=== PATIENT | male | born 1975 | race Caucasian/White ===

== ENCOUNTER 2019-01-30 03:04 | Emergency (ER) | payer MEDICARE, MEDICAID ==
[~2019-01-30] VITALS: Ht 170.2 cm; Wt 100.0 kg
[2019-01-30] MEDS ORDERED: SODIUM CHLORIDE 0.9% 1,000 ML IV ONE ×2 (03:18→04:30)
[2019-01-30] MEDS ORDERED: MORPHINE SULFATE 4 MG/ML CPJ (NOT FOR IM USE) IV STA (03:18)
[2019-01-30] MEDS ORDERED: ONDANSETRON HCL 4MG/2ML INJ IV STA (03:18)
[2019-01-30 03:43] LABS: BASOPHILS % 1.2 % (0.0-2.0); EOSINOPHILS % 6.2 % (0.0-5.0); HEMATOCRIT. 30.5 % (42.0-52.0); HEMOGLOBIN. 10.9 g/dL (14.0-18.0); LYMPHOCYTES % 22.9 % (20.0-50.0); MEAN CORPUSCULAR HEMOGLOBIN 36.1 pg (28.0-32.0); MEAN CORPUSCULAR VOLUME 101.1 fL (80.0-94.0); MEAN PLATELET VOLUME 7.5 fl (7.4-10.4); MONOCYTES % 9.5 % (2.0-8.0); NEUTROPHILS % 60.2 % (40.0-76.0); PLATELET 177 x1000/uL (130-400); RED BLOOD CELL COUNT 3.02 mill/uL (4.7-6.1); RED CELL DISTRIBUTION WIDTH 13.5 % (11.6-14.6)
[2019-01-30 03:50] LABS: CHLORIDE 102 mEq/L (98-107)
[2019-01-30 03:51] LABS: PARTIAL THROMBOPLASTIN TIME 26.4 sec (23.4-31.0); PROTHROMBIN TIME 10.6 sec (9.6-11.0)
[2019-01-30] MEDS ORDERED: HYDROMORPHONE HCL/PF 2MG/ML CPJ IV ONE (04:30)
[2019-01-30 05:15] VITALS: BP 183/75
[2019-01-30] MEDS ORDERED: IOHEXOL-300 100 ML BOTTLE ONE (05:56)
[2019-01-30] MEDS ORDERED: IOHEXOL-350 100 ML BOTTLE ONE (05:56)
== END 2019-02-03 10:21 | disposition short-term general hospital (02) ==
LOC: ER 03:04
DX: S22.32XA Fracture of one rib, left side, initial encounter for closed fracture (principal); S22.21XA Fracture of manubrium, initial encounter for closed fracture; S22.088A Other fracture of T11-T12 vertebra, initial encounter for closed fracture; E11.9 Type 2 diabetes mellitus without complications; E78.00 Pure hypercholesterolemia, unspecified; I10 Essential (primary) hypertension; V49.59XA Passenger injured in collision with other motor vehicles in traffic accident, initial encounter; Y93.89 Activity, other specified; Y92.89 Other specified places as the place of occurrence of the external cause; Y99.8 Other external cause status; Z98.890 Other specified postprocedural states
CPT/HCPCS: 36415; 70450; 70498; 71045; 71260; 72125; 72128; 72131; 74177; 80053; 83690; 84484; 85025; 85610; 85730; 86850; 86900; 86901; 96374; 96375; 99291; J1170; J2270; J2405; J7030; Q9967

== ENCOUNTER 2020-06-29 10:38 | Inpatient (IN) | payer MEDICARE, OTHER ==
[~2020-06-29] VITALS: Ht 165.1 cm; Wt 96.2 kg
[~2020-06-29 10:38] MED LIST: AMLO5TAB88 PO; CALC667C MT; L25 MT; LEVE750T4 PO; LISI10TA5 PO
[2020-06-29] MEDS ORDERED: ONDANSETRON HCL 4MG/2ML INJ IV STA (10:56)
[2020-06-29] MEDS ORDERED: LORAZEPAM 2MG/ML CPJ IV STA (10:56)
[2020-06-29 11:55] LABS: BASOPHILS % 0.8 % (0.0-2.0); EOSINOPHILS % 2.9 % (0.0-5.0); HEMATOCRIT. 24.3 % (42.0-52.0); HEMOGLOBIN. 8.3 g/dL (14.0-18.0); LYMPHOCYTES % 12.5 % (20.0-50.0); MEAN CORPUSCULAR HEMOGLOBIN 33.3 pg (28.0-32.0); MEAN PLATELET VOLUME 7.6 fl (7.4-10.4); MONOCYTES % 11.6 % (2.0-8.0); NEUTROPHILS % 72.2 % (40.0-76.0); PLATELET 89 x1000/uL (130-400); RED BLOOD CELL COUNT 2.48 mill/uL (4.7-6.1)
[2020-06-29 12:07] LABS: CHLORIDE 92 mEq/L (98-107)
[2020-06-29 12:12] LABS: ETHANOL BLOOD 124 mg/dL
[2020-06-29] MEDS ORDERED: CHLORDIAZEPOXIDE 25MG CAPSULE PO ONE (12:15)
[2020-06-29] MEDS ORDERED: LORAZEPAM 2MG/ML CPJ IV ONE ×3 (12:15→13:30)
[2020-06-29] MEDS ORDERED: FUROSEMIDE 100MG/10ML VIAL IV STA (12:29)
[2020-06-29] MEDS ORDERED: ALBUTEROL (0.083%) 2.5MG/3ML NEB HHN ONE (12:30)
[2020-06-29] MEDS ORDERED: DEXTROSE 50% WATER 50ML SYRINGE IV ONE ×2 (12:30→14:30)
[2020-06-29] MEDS ORDERED: SODIUM BICARBONATE 8.4% 1 MEQ/ML 50ML SYR IV ONE (12:30)
[2020-06-29] MEDS ORDERED: INSULIN REGULAR (HUMULIN R) 300UNITS/3ML VIAL IV ONE (12:30)
[2020-06-29] MEDS ORDERED: FOLIC ACID 1 MG, THIAMINE HCL 100 MG, MVI, ADULT NO.1 10 ML in DEXTROSE 5% WATER 1,000 ML IV ONE ×4 (13:30)
[2020-06-29] MEDS ORDERED: DEXT 5% IV PRN (13:45)
[2020-06-29] MEDS ORDERED: LORAZEPAM IV PRN (13:45)
[2020-06-29] MEDS ORDERED: WATER IV PRN (13:45)
[2020-06-29] MEDS ORDERED: DEXT 10% WATER 1,000 ML IV SCH (14:45)
[2020-06-29] MEDS ORDERED: DEXTROSE 50% WATER 50ML SYRINGE IV PRN ×2 (14:45→15:45)
[2020-06-29] MEDS: DEXT 10% WATER 1,000 ML IV SCH (15:43)
[2020-06-29] MEDS ORDERED: ACETAMINOPHEN 325MG TABLET PO PRN (15:45)
[2020-06-29] MEDS ORDERED: ONDANSETRON HCL 4MG/2ML INJ IV PRN (15:45)
[2020-06-29] MEDS: BLOOD SUGAR DIAGNOSTIC STRIP TEST SCH ×2 (17:52→21:00)
[2020-06-29] MEDS: LORAZEPAM 2MG/ML CPJ IV PRN (22:35)
[2020-06-29] MEDS: TRAZODONE HCL 50MG TABLET PO PRN (22:38)
[2020-06-29] MEDS: CHLORDIAZEPOXIDE 25MG CAPSULE PO SCH (23:00)
[2020-06-29] MEDS: EPOETIN ALFA-EPBX 10,000 UNIT/ML VIAL SUBCUT SCH (23:00)
[2020-06-29] MEDS: AMLODIPINE 5MG TABLET PO SCH (23:00)
[2020-06-30] VITALS: BP 153/78
[2020-06-30 04:00] VITALS: BP 151/46
[2020-06-30] MEDS: BLOOD SUGAR DIAGNOSTIC STRIP TEST SCH ×4 (06:33→20:11)
[2020-06-30] MEDS: CHLORDIAZEPOXIDE 25MG CAPSULE PO SCH ×3 (06:36→21:00)
[2020-06-30 07:09] LABS: BASOPHILS % 0.3 % (0.0-2.0); EOSINOPHILS % 1.5 % (0.0-5.0); HEMATOCRIT. 22.6 % (42.0-52.0); HEMOGLOBIN. 7.8 g/dL (14.0-18.0); LYMPHOCYTES % 9.3 % (20.0-50.0); MEAN CORPUSCULAR HEMOGLOBIN 34.1 pg (28.0-32.0); MEAN CORPUSCULAR VOLUME 98.2 fL (80.0-94.0); MEAN PLATELET VOLUME 7.5 fl (7.4-10.4); MONOCYTES % 13.7 % (2.0-8.0); NEUTROPHILS % 75.2 % (40.0-76.0); PLATELET 63 x1000/uL (130-400)
[2020-06-30 07:23] LABS: CHLORIDE 94 mEq/L (98-107)
[2020-06-30 07:35] LABS: TOTAL IRON BINDING CAPACITY 206 ug/dL (250-450)
[2020-06-30 07:48] LABS: VITAMIN B12 SERUM 782 pg/mL (211-911)
[2020-06-30 08:00] VITALS: BP_SYST 11; BP_SYST 111; BP_DIAS 54
[2020-06-30] MEDS: MULTIVITAMINS,THER W-MINERALS TABLET PO SCH (08:52)
[2020-06-30] MEDS: AMLODIPINE 5MG TABLET PO SCH ×2 (08:52→20:11)
[2020-06-30] MEDS: FOLIC ACID 1MG TABLET PO SCH (08:52)
[2020-06-30] MEDS: THIAMINE HCL 100MG TABLET PO SCH (08:52)
[2020-06-30 12:00] VITALS: BP 129/68
[2020-06-30] MEDS: NITROGLYCERIN 0.2MG/HR PATCH TOP SCH (13:55)
[2020-06-30] MEDS ORDERED: CHLORDIAZEPOXIDE 25MG CAPSULE PO NR (15:15)
[2020-06-30 16:00] VITALS: BP 99/43
[2020-06-30] MEDS: DEXT 10% WATER 1,000 ML IV SCH (18:48)
[2020-06-30] MEDS: TRAZODONE HCL 50MG TABLET PO PRN ×2 (19:55→19:59)
[2020-06-30] MEDS: LORAZEPAM 2MG/ML CPJ IV PRN ×2 (19:55→19:59)
[2020-06-30 20:00] VITALS: BP 151/63
[2020-07-01] VITALS: BP 153/79
[2020-07-01] MEDS: LORAZEPAM 2MG/ML CPJ IV PRN (02:03)
[2020-07-01 04:00] VITALS: BP 147/57
[2020-07-01] MEDS: CHLORDIAZEPOXIDE 25MG CAPSULE PO SCH ×2 (05:43→17:31)
[2020-07-01] MEDS: BLOOD SUGAR DIAGNOSTIC STRIP TEST SCH ×4 (05:47→21:55)
[2020-07-01 08:00] VITALS: BP 147/53
[2020-07-01] MEDS: THIAMINE HCL 100MG TABLET PO SCH (08:49)
[2020-07-01] MEDS: FOLIC ACID 1MG TABLET PO SCH (08:49)
[2020-07-01] MEDS: MULTIVITAMINS,THER W-MINERALS TABLET PO SCH (08:49)
[2020-07-01] MEDS: AMLODIPINE 5MG TABLET PO SCH ×2 (08:49→21:00)
[2020-07-01] MEDS: NITROGLYCERIN 0.2MG/HR PATCH TOP SCH (08:49)
[2020-07-01 11:40] LABS: HEMATOCRIT. 23.5 % (42.0-52.0); HEMOGLOBIN. 8.1 g/dL (14.0-18.0); MEAN CORPUSCULAR HEMOGLOBIN 33.6 pg (28.0-32.0); MEAN CORPUSCULAR VOLUME 98.1 fL (80.0-94.0); MEAN PLATELET VOLUME 8.1 fl (7.4-10.4); PLATELET 62 x1000/uL (130-400); RED CELL DISTRIBUTION WIDTH 16.2 % (11.6-14.6)
[2020-07-01 11:50] LABS: CHLORIDE 95 mEq/L (98-107)
[2020-07-01 12:00] VITALS: BP 132/51
[2020-07-01 12:44] LABS: PLATELET ESTIMATE DECREASED
[2020-07-01 16:00] VITALS: BP 120/61
[2020-07-01] MEDS: DEXT 10% WATER 1,000 ML IV SCH (17:23)
[2020-07-01 20:00] VITALS: BP 101/49
[2020-07-01] MEDS: EPOETIN ALFA-EPBX 10,000 UNIT/ML VIAL SUBCUT SCH (21:54)
[2020-07-02] VITALS: BP 96/46
[2020-07-02] MEDS: CHLORDIAZEPOXIDE 25MG CAPSULE PO SCH ×2 (06:39→17:10)
[2020-07-02] MEDS: DEXT 10% WATER 1,000 ML IV SCH ×2 (06:39→21:26)
[2020-07-02] MEDS: BLOOD SUGAR DIAGNOSTIC STRIP TEST SCH ×4 (06:40→21:26)
[2020-07-02 06:46] LABS: HEMATOCRIT. 22.5 % (42.0-52.0); HEMOGLOBIN. 7.8 g/dL (14.0-18.0); MEAN CORPUSCULAR HEMOGLOBIN 34.3 pg (28.0-32.0); MEAN CORPUSCULAR VOLUME 99.3 fL (80.0-94.0); MEAN PLATELET VOLUME 8.9 fl (7.4-10.4); PLATELET 85 x1000/uL (130-400); RED BLOOD CELL COUNT 2.27 mill/uL (4.7-6.1); RED CELL DISTRIBUTION WIDTH 16.5 % (11.6-14.6)
[2020-07-02 06:56] LABS: CHLORIDE 95 mEq/L (98-107)
[2020-07-02 08:00] VITALS: BP 122/66
[2020-07-02] MEDS: THIAMINE HCL 100MG TABLET PO SCH (08:48)
[2020-07-02] MEDS: MULTIVITAMINS,THER W-MINERALS TABLET PO SCH (08:48)
[2020-07-02] MEDS: NITROGLYCERIN 0.2MG/HR PATCH TOP SCH (08:48)
[2020-07-02] MEDS: AMLODIPINE 5MG TABLET PO SCH ×2 (08:48→21:26)
[2020-07-02] MEDS: FOLIC ACID 1MG TABLET PO SCH (08:48)
[2020-07-02 12:00] VITALS: BP 121/65
[2020-07-02] MEDS ORDERED: DIPHENOXYLATE/ATROPINE 2.5/0.025MG TABLET PO NR (12:00)
[2020-07-02 14:37] LABS: PLATELET ESTIMATE DECREASED
[2020-07-02 16:00] VITALS: BP 127/68
[2020-07-02 20:00] VITALS: BP 136/66
[2020-07-03] VITALS: BP 116/53
[2020-07-03 04:00] VITALS: BP 133/70
[2020-07-03] MEDS: BLOOD SUGAR DIAGNOSTIC STRIP TEST SCH ×4 (06:15→21:36)
[2020-07-03] MEDS: CHLORDIAZEPOXIDE 25MG CAPSULE PO SCH ×2 (06:15→17:27)
[2020-07-03 06:37] LABS: HEMATOCRIT. 22.3 % (42.0-52.0); HEMOGLOBIN. 7.8 g/dL (14.0-18.0); MEAN CORPUSCULAR HEMOGLOBIN 34.6 pg (28.0-32.0); MEAN CORPUSCULAR VOLUME 99.7 fL (80.0-94.0); MEAN PLATELET VOLUME 7.9 fl (7.4-10.4); PLATELET 69 x1000/uL (130-400); RED BLOOD CELL COUNT 2.24 mill/uL (4.7-6.1); RED CELL DISTRIBUTION WIDTH 16.4 % (11.6-14.6)
[2020-07-03 06:45] LABS: CHLORIDE 96 mEq/L (98-107)
[2020-07-03 08:00] VITALS: BP 132/72
[2020-07-03] MEDS: MULTIVITAMINS,THER W-MINERALS TABLET PO SCH (09:19)
[2020-07-03] MEDS: NITROGLYCERIN 0.2MG/HR PATCH TOP SCH (09:19)
[2020-07-03] MEDS: THIAMINE HCL 100MG TABLET PO SCH (09:19)
[2020-07-03] MEDS: AMLODIPINE 5MG TABLET PO SCH ×2 (09:19→21:00)
[2020-07-03] MEDS: FOLIC ACID 1MG TABLET PO SCH (09:19)
[2020-07-03] MEDS: DEXT 10% WATER 1,000 ML IV SCH (09:20)
[2020-07-03 12:00] VITALS: BP 141/58
[2020-07-03 15:15] LABS: PLATELET ESTIMATE DECREASED
[2020-07-03 16:00] VITALS: BP_SYST 143; BP_SYST 163; BP_DIAS 67
[2020-07-03 21:10] VITALS: BP 154/82
[2020-07-04 04:00] VITALS: BP 148/62
[2020-07-04] MEDS: BLOOD SUGAR DIAGNOSTIC STRIP TEST SCH ×4 (06:37→21:00)
[2020-07-04] MEDS: CHLORDIAZEPOXIDE 25MG CAPSULE PO SCH (06:37)
[2020-07-04 08:04] VITALS: BP 132/72
[2020-07-04 08:20] LABS: HEMATOCRIT. 24.7 % (42.0-52.0); HEMOGLOBIN. 8.5 g/dL (14.0-18.0); MEAN CORPUSCULAR HEMOGLOBIN 34.1 pg (28.0-32.0); MEAN CORPUSCULAR VOLUME 98.9 fL (80.0-94.0); MEAN PLATELET VOLUME 7.7 fl (7.4-10.4); PLATELET 90 x1000/uL (130-400); RED BLOOD CELL COUNT 2.49 mill/uL (4.7-6.1); RED CELL DISTRIBUTION WIDTH 16.5 % (11.6-14.6)
[2020-07-04 08:45] LABS: CHLORIDE 99 mEq/L (98-107)
[2020-07-04] MEDS: MULTIVITAMINS,THER W-MINERALS TABLET PO SCH (09:19)
[2020-07-04] MEDS: THIAMINE HCL 100MG TABLET PO SCH (09:19)
[2020-07-04] MEDS: FOLIC ACID 1MG TABLET PO SCH (09:19)
[2020-07-04] MEDS: AMLODIPINE 5MG TABLET PO SCH ×2 (09:19→22:06)
[2020-07-04] MEDS: NITROGLYCERIN 0.2MG/HR PATCH TOP SCH (09:26)
[2020-07-04] MEDS: DEXT 10% WATER 1,000 ML IV SCH (09:27)
[2020-07-04 11:13] LABS: PLATELET ESTIMATE DECREASED
[2020-07-04 12:10] VITALS: BP 144/69
[2020-07-04 16:04] VITALS: BP 148/81
[2020-07-04] MEDS ORDERED: IOHEXOL-350 100 ML BOTTLE ONE (18:07)
[2020-07-04] MEDS ORDERED: CEFTRIAXONE 1 G PREMIX 50 ML IV SCH (19:00)
[2020-07-04 20:00] VITALS: BP 143/65
[2020-07-04] MEDS ORDERED: VANCOMYCIN 2,000 MG in DEXT 5% WATER 500 ML IV NR (21:00)
[2020-07-04] MEDS: CEFTRIAXONE 1,000 MG in DEXTROSE 5% WATER 50 ML IV SCH (22:06)
[2020-07-04] MEDS: EPOETIN ALFA-EPBX 10,000 UNIT/ML VIAL SUBCUT SCH (22:07)
[2020-07-05] VITALS: BP 149/76
[2020-07-05 04:00] VITALS: BP 135/69
[2020-07-05] MEDS: BLOOD SUGAR DIAGNOSTIC STRIP TEST SCH ×4 (06:46→21:00)
[2020-07-05 07:22] LABS: HEMATOCRIT. 24.2 % (42.0-52.0); HEMOGLOBIN. 8.6 g/dL (14.0-18.0); MEAN CORPUSCULAR HEMOGLOBIN 34.9 pg (28.0-32.0); MEAN CORPUSCULAR VOLUME 98.7 fL (80.0-94.0); MEAN PLATELET VOLUME 7.1 fl (7.4-10.4); PLATELET 93 x1000/uL (130-400); RED BLOOD CELL COUNT 2.46 mill/uL (4.7-6.1); RED CELL DISTRIBUTION WIDTH 16.7 % (11.6-14.6)
[2020-07-05 08:00] VITALS: BP 164/72
[2020-07-05] MEDS ORDERED: MIDAZOLAM HCL 2 MG/2 ML VIAL ONE ×2 (08:19→09:18)
[2020-07-05] MEDS ORDERED: MIDAZOLAM HCL 5 MG/5 ML VIAL ONE (08:20)
[2020-07-05] MEDS ORDERED: FENTANYL CITRATE/PF 50MCG/ML 2ML VIAL ONE ×2 (08:20→09:18)
[2020-07-05] MEDS ORDERED: FENTANYL CITRATE/PF 50MCG/ML 5ML VIAL ONE (08:20)
[2020-07-05] MEDS ORDERED: IODIXANOL 320MG/ML 100 ML BOTTLE IV ONE (08:21)
[2020-07-05] MEDS ORDERED: LIDOCAINE HCL 1% 20ML VIAL (Pyxis) INJ ONE (08:21)
[2020-07-05] MEDS ORDERED: IOHEXOL-300 100 ML BOTTLE ONE (08:21)
[2020-07-05] MEDS: NITROGLYCERIN 0.2MG/HR PATCH TOP SCH (09:00)
[2020-07-05] MEDS: AMLODIPINE 5MG TABLET PO SCH ×2 (09:00→22:29)
[2020-07-05] MEDS: DEXT 10% WATER 1,000 ML IV SCH (09:23)
[2020-07-05] MEDS: THIAMINE HCL 100MG TABLET PO SCH (12:52)
[2020-07-05] MEDS: MULTIVITAMINS,THER W-MINERALS TABLET PO SCH (12:52)
[2020-07-05] MEDS: FOLIC ACID 1MG TABLET PO SCH (12:52)
[2020-07-05] MEDS: CHLORDIAZEPOXIDE 25MG CAPSULE PO SCH (12:53)
[2020-07-05 18:03] LABS: PLATELET ESTIMATE DECREASED
[2020-07-05] MEDS ORDERED: LEVO750T46 PO (21:50)
[2020-07-05] MEDS ORDERED: DOXY100C2 MT (21:50)
[2020-07-05] MEDS: CEFTRIAXONE 1,000 MG in DEXTROSE 5% WATER 50 ML IV SCH (22:29)
[2020-07-06] VITALS: BP 142/72
[2020-07-06 04:00] VITALS: BP 153/94
[2020-07-06] MEDS: BLOOD SUGAR DIAGNOSTIC STRIP TEST SCH ×2 (06:42→11:45)
[2020-07-06 08:00] VITALS: BP 127/71
[2020-07-06] MEDS: CHLORDIAZEPOXIDE 25MG CAPSULE PO SCH (09:17)
[2020-07-06] MEDS: MULTIVITAMINS,THER W-MINERALS TABLET PO SCH (09:18)
[2020-07-06] MEDS: THIAMINE HCL 100MG TABLET PO SCH (09:18)
[2020-07-06] MEDS: NITROGLYCERIN 0.2MG/HR PATCH TOP SCH (09:18)
[2020-07-06] MEDS: AMLODIPINE 5MG TABLET PO SCH (09:18)
[2020-07-06] MEDS: FOLIC ACID 1MG TABLET PO SCH (09:18)
[2020-07-06 13:52] VITALS: BP 127/77
== END 2020-07-06 15:55 | disposition home health service (06) | DRG 981 ==
LOC: ER 10:38 → 5WST 12:57 → EDBEDREQ 13:04 → EDBEDREQTM 13:04 → ENRESERV 22:12
PROVIDERS: ADMIT Internal Medicine; ATTEND Internal Medicine
PROC: 5A1D70Z Performance of Urinary Filtration, Intermittent, Less than 6 Hours Per Day (ICD-10-PCS; 2020-06-29)
PROC: 5A1D70Z Performance of Urinary Filtration, Intermittent, Less than 6 Hours Per Day (ICD-10-PCS; 2020-07-03)
PROC: 05HY33Z Insertion of Infusion Device into Upper Vein, Percutaneous Approach (ICD-10-PCS; principal; 2020-07-05)
PROC: 04CR3ZZ Extirpation of Matter from Right Posterior Tibial Artery, Percutaneous Approach (ICD-10-PCS; 2020-07-05)
PROC: 047R3ZZ Dilation of Right Posterior Tibial Artery, Percutaneous Approach (ICD-10-PCS; 2020-07-05)
PROC: B54MZZA Ultrasonography of Right Upper Extremity Veins, Guidance (ICD-10-PCS; 2020-07-05)
PROC: 04HL33Z Insertion of Infusion Device into Left Femoral Artery, Percutaneous Approach (ICD-10-PCS; 2020-07-05)
PROC: 04HK33Z Insertion of Infusion Device into Right Femoral Artery, Percutaneous Approach (ICD-10-PCS; 2020-07-05)
PROC: 5A1D70Z Performance of Urinary Filtration, Intermittent, Less than 6 Hours Per Day (ICD-10-PCS; 2020-07-05)
DX: F10.139 Alcohol abuse with withdrawal, unspecified (principal); N18.6 End stage renal disease; E11.52 Type 2 diabetes mellitus with diabetic peripheral angiopathy with gangrene; E87.2 Acidosis; E87.1 Hypo-osmolality and hyponatremia; I13.2 Hypertensive heart and chronic kidney disease with heart failure and with stage 5 chronic kidney disease, or end stage renal disease; G93.40 Encephalopathy, unspecified; D61.818 Other pancytopenia; M86.8X7 Other osteomyelitis, ankle and foot; L97.518 Non-pressure chronic ulcer of other part of right foot with other specified severity; E11.69 Type 2 diabetes mellitus with other specified complication; E11.22 Type 2 diabetes mellitus with diabetic chronic kidney disease; E87.5 Hyperkalemia; E11.649 Type 2 diabetes mellitus with hypoglycemia without coma; E11.65 Type 2 diabetes mellitus with hyperglycemia; I50.9 Heart failure, unspecified; I16.0 Hypertensive urgency; D63.1 Anemia in chronic kidney disease; Y90.6 Blood alcohol level of 120-199 mg/100 ml; I70.202 Unspecified atherosclerosis of native arteries of extremities, left leg; E11.621 Type 2 diabetes mellitus with foot ulcer; E66.9 Obesity, unspecified; R00.0 Tachycardia, unspecified; R56.9 Unspecified convulsions; Z79.899 Other long term (current) drug therapy; Z89.421 Acquired absence of other right toe(s); Z99.2 Dependence on renal dialysis; Z68.35 Body mass index [BMI] 35.0-35.9, adult; Z20.822 Contact with and (suspected) exposure to COVID-19
CPT/HCPCS: 36415; 37229; 71045; 73630; 75635; 75710; 76937; 80048; 80053; 80202; 80320; 82607; 82962; 83036; 83540; 83550; 83735; 84484; 85025; 85044; 85347; 85651; 86140; 87426; 93005; 94640; 97162; 97166; 99291; C1725; C1760; C1769; C1885; C1887; C1893; C1894; J0696; J0885; J1644; J1815; J1940; J2060; J2250; J2405; J3010; J3370; J3411; J3490; J7060; J7070; Q9967; G0480